=== PATIENT | female | born 1970 | race Caucasian/White ===

== ENCOUNTER 2016-08-07 07:57 | Observation (INO) | payer MEDICARE, OTHER ==
[~2016-08-07] VITALS: Ht 167.6 cm; Wt 74.0 kg
[2016-08-07] MEDS ORDERED: LORAZEPAM 2 MG/ML VIAL ONE ×2 (08:28→17:29)
[2016-08-07] MEDS ORDERED: SODIUM CHLORIDE 0.9% 1,000 ML ONE ×3 (08:36→15:08)
[2016-08-07] MEDS ORDERED: DILTIAZEM 50 MG/10 ML VIAL IV ONE ×2 (10:14→17:30)
[2016-08-07] MEDS ORDERED: CEFTRIAXONE 250 MG VIAL ONE (15:06)
[2016-08-07] MEDS ORDERED: AZITHROMYCIN 250 MG TAB ONE (15:06)
[2016-08-07] MEDS ORDERED: ONDANSETRON ODT 4 MG TAB ONE (15:06)
[2016-08-07] MEDS ORDERED: LIDOCAINE 1% MDV 20 ML ONE (15:08)
[2016-08-07] MEDS ORDERED: METOPROLOL TART 25 MG TAB ONE (17:14)
[2016-08-07] MEDS ORDERED: ED DILTIAZEM DRIP 125 ML IV ONE (17:30)
[2016-08-07] MEDS ORDERED: SOD CHLOR 0.9% 1000 ML IV SCH (18:40)
[2016-08-07] MEDS ORDERED: CARDIZEM 1 MG/ML DRIP 125 ML IV SCH (18:40)
[2016-08-07 19:00] VITALS: BP_SYST 110; BP_SYST 141
[2016-08-07] MEDS ORDERED: KCL CR 10 MEQ CAP PO ONE (19:20)
[2016-08-07 20:00] VITALS: BP_SYST 152
[2016-08-07 20:03] VITALS: BP_SYST 119; RESP 18; TEMP 98.5
[2016-08-07 20:31] VITALS: BP_SYST 135
[2016-08-07] MEDS ORDERED: *PINK BRACELET XX ONE (20:45)
[2016-08-07 21:00] VITALS: BP_SYST 136
[2016-08-07] MEDS ORDERED: TRAZODONE 50 MG TAB PO SCH (21:00)
[2016-08-07] MEDS ORDERED: QUEtiapine 200 MG TAB PO SCH (21:00)
[2016-08-07] MEDS: LORAZEPAM 0.5 MG TAB PO PRN (22:03)
[2016-08-07] MEDS: METOPROLOL XL 25 MG TAB PO SCH (22:03)
[2016-08-07 22:15] VITALS: BP_SYST 136
[2016-08-07 22:19] VITALS: Ht 167.6 cm; Wt 74.0 kg
[2016-08-08] VITALS (7 sets, daily range): BP systolic 82–121; RESP 18–20; TEMP 96–98.1
[2016-08-08] MEDS ORDERED: [UNRECOGNIZED DRUG - OTHER] XX SCH (08:00)
[2016-08-08] MEDS: LORAZEPAM 0.5 MG TAB PO PRN (08:36)
[2016-08-08] MEDS ORDERED: MISSING DOSE XX ONE (09:05)
[2016-08-08] MEDS: METOPROLOL XL 25 MG TAB PO SCH (09:09)
== END 2016-08-08 08:05 | disposition home or self-care (01) ==
LOC: ENRESERVDT → ENRESERVTM → ER 07:57 → EMR 17:14 → ENPENDDIS 17:14 → PCU2 18:30 → PCU 23:33 → PCU2 08-08 11:56 → PCU 08-08 11:56
PROVIDERS: ADMIT Internal Medicine Nephrology; ATTEND Internal Medicine Nephrology
DX: R00.0 Tachycardia, unspecified (principal); R07.9 Chest pain, unspecified; F10.129 Alcohol abuse with intoxication, unspecified; F15.10 Other stimulant abuse, uncomplicated; Y90.2 Blood alcohol level of 40-59 mg/100 ml; F31.9 Bipolar disorder, unspecified; Z04.41 Encounter for examination and observation following alleged adult rape; R78.4 Finding of other drugs of addictive potential in blood
CPT/HCPCS: 36415; 71010; 80053; 80076; 81001; 81025; 82550; 82947; 83735; 84439; 84443; 84484; 84703; 85025; 85379; 85610; 85730; 86701; 87081; 87088; 87110; 87491; 87493; 87591; 87800; 93005; 93306; 96361; 96365; 96372; 96375; 96376; 99285; G0378; G0479; G0480; J0696; 80307; 80320